=== PATIENT | female | born 1960 | race Caucasian/White ===

== ENCOUNTER 2017-02-21 10:14 | Emergency (ER) | payer OTHER ==
--- NOTE | ~2017-02-21 | CR281 ---
[facility] A Service of [facility] RADIOLOGY TEXT RESULTS PATIENT: ARLETTE CHARLES LOCATION: [facility] : 62 UNIT #: [id number] AGE: [address]: Neela Maharaj APRN SEX: F ORDER DR: [id number] [facility] [address] [place], [place] [address] [id number] MR#: [id number] Acc #: [id number] NAME: ARLETTE CHARLES : 1960 SEX: F STUDY DATE/TIME: 02/21/2017 10:58 UNIT: [facility] ROOM: STUDY DESCRIPTION: CR Wrist Min 3 View Lt Attending Physician: Neela Maharaj A.P.R.N. Referring Physician: Rahul Kaufman M.D. Ordering Physician: Ed Peter Martinez M.D. Primary Care Physician: Lizzy Adams M.D. MEDICAL IMAGING REPORT This report is preliminary unless electronic signature is present EXAM Left wrist, 3 views. HISTORY Injury 6 weeks ago with wrist pain. FINDINGS Three views are submitted. Bony elements are intact and normal alignment. No fractures are identified. CONCLUSION Negative. Dictated by... Tuan Padgett M.D. THIS IS AN ELECTRONICALLY VERIFIED REPORT Tuan Padgett M.D. at 02/22/2017 9:17 AM CHANDNI/vin TD: 02/21/2017 18:20 JOB #: [id number] MEDICAL IMAGING REPORT Page 1 of 1 COPY
[~2017-02-21 10:14] MED LIST: ALBUTEROL17 GM INH; BACTRIM DS TABL1 TAB PO; COUMADIN PO; DARVOCET-N 1001 TAB; DIAZEPAM PO; FIORINAL CAPSUL1 CAP PO; LIPITOR; LORTAB 5/500 TA1 TA1 PO; LORTAB 7.5-5001 TAB PO; LOTREL 10/20 MG1 CAP PO; MEDROL4 MG/DOSE- PO; PREDNISONE5 M1 PO; TRIGLIDE160 M1 PO; ZOLOFT PO
== END 2017-02-21 13:40 | disposition home or self-care (01) ==
LOC: CED 10:14 → CFTX 10:14
DX: S60.212A Contusion of left wrist, initial encounter (principal); J45.909 Unspecified asthma, uncomplicated; I10 Essential (primary) hypertension; F32.9 Major depressive disorder, single episode, unspecified; Z87.442 Personal history of urinary calculi; Z98.51 Tubal ligation status; F17.210 Nicotine dependence, cigarettes, uncomplicated; W50.1XXA Accidental kick by another person, initial encounter; Y92.9 Unspecified place or not applicable
CPT/HCPCS: 29125; 73110; 99283